=== PATIENT | female | born 1960 | race Caucasian/White ===

== ENCOUNTER 2024-09-11 11:54 | Inpatient (IN) | payer BC, SELFPAY ==
[2024-09-11] VITALS (7 sets, daily range): BP systolic 131–160; BP diastolic 72–97; PULSE 90–127; RESP 16–20; TEMP 36.8–37; O2SAT 98–100
--- NOTE | ~2024-09-11 | CT_ITS ---
CT facial bones wo con Ordering provider: Janes Soto MD History: . R jaw pain after biting onto bone . Comparison: None. Technique: Thin slice axial CT of the facial bones was performed without contrast. Coronal and sagit carissa reformatted images were also obtained. . Automated exposure control and iterative reconstruction technique were employed. The dose-length product was 323.97 mGy-cm. FINDINGS: PARANASAL SINUSES: Bilateral maxillary sinus disease. Well aerated. BONES: No facial fracture including no nasal bone fracture. Multilevel degenerative cervical disc disease. ORBITS AND SUPERFICIAL SOFT TISSUES: The optic globes and orbits are normal. Tiny Hypodensities are s een in the left parotid the gland.. The superficial soft tissues are normal. VISUALIZED MASTOIDS: Well aerated. LIMITED VISUALIZED BRAIN PARENCHYMA: Normal. Possible small nodule in the right lung apical area. IMPRESSION: No facial fracture. Reviewed, dictated and finalized at location A. IMPRESSION: No facial fracture.
--- OUTSIDE RECORDS SUMMARY | 2024-09-11 13:57 | XMS_ITS | Clinical Summary ---
Author Organization [facility] Address [address] [place] [address] Care Team Providers Care Claim Taker Name Role Phone None, Provider MD Primary Care Provider Unavaila ble Allergies Active Allergy Reactions Criticality Noted Date Comments Ciprofloxacin Hives High 01/02/2014 Cefixime Hives High 07/20/2018 Tilactase Unknown Low 10/16/2011 Medications estradiol 1 mg-progesterone 20 mg-testosterone -0.25 mg/ 15 mL creamIndication s:Hormone replacement therapy Apply 0.5 mLs topically daily. Patient would prefer different combonation but I could not get it to go thru If possible fill as Estradiol .05/ Prog 50/Test 0.1 Thank you 15 mL 3 0 Active Additional Information Patient not taking.Reported on 04/25/2024 PARoxetine 20 MG tabletIndicatio ns:Anxiety Take 1 tablet (20 mg total) by mouth daily. 90 tablet 1 1 Active Additional Information Patient not taking.Reported on 04/25/2024 GENERIC COMPOUNDED CREAMIndication s:Hormone replacement therapy Compound cream containing:Estr adiol .05 mg/Progesterone 50 mg/Testosterone 0.1 mg Administration instructions:Ap ply 0.5ml topically daily Dispense 15ml 1 Container 3 1 Active Additional Information Patient not taking.Reported on 04/25/2024 Active Problems Problem Noted Date Diagnosed Date Sinusitis, acute 12/10/2017 Allergic rhinitis 03/23/2017 Hormone replacement therapy 10/04/2015 Overview (07/20/2018): Impression - 23Mar2017 Trev Bautista: # 15 EstradlL/Prog/test ).5/50/.01; apply 2 clicks to forearm & rub in daily Hot flashes 08/23/2013 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 Anxiety 12/20/2012 Vitamin D deficiency 09/24/2012 Anemia, B12 deficiency 09/23/2012 Fatigue 09/22/2012 Irritable bowel syndrome 10/16/2011 Resolved Problems Problem Noted Date Diagnosed Date Resolved Date Wears glasses 03/23/2017 11/11/2019 Encounter for preventive health examination 10/16/2011 11/11/2019 Immunizations Immunization Administration Dates Next Due Td (Tenivac) preservative free 07/08/2007,1995 Tdap (Generic) 08/05/2013 Social History Tobacco Use Types Packs/Day Years Used Date Smoking Tobacco: Never Smokeless Tobacco: Never Tobacco Cessation:Counseling Given: No Alcohol Use Standard Drinks/Week Comments Yes 0 (1 standard drink = 0.6 oz pur e alcohol) PHQ-2 Answer Date Recorded Patient Health Questionnaire-2 Score 0 04/25/2024 Comments No Sex and Gender Information Value Date Recorded Sex Assigned at Female 04/18/2024 10:08 AM PASTRY COOK Legal Sex Female 6:49 PM CDT Gender Identity Not on file Sexual Orientation Not on file Last Filed Vital Signs Vital Sign Reading Time Taken Comments Blood Pressure 160/86 04/25/2024 2:13 PM PASTRY COOK notated a little anxious Pulse 82 04/25/2024 2:13 PM PASTRY COOK Temperature 36.2 C (97.1 F) 04/25/2024 1:27 PM PASTRY COOK Respiratory Rate 18 05/22/2020 2:20 PM CDT Oxygen Saturation 98% 05/22/2020 2:2 0 PM CDT Inhaled Oxygen Concentration - - Weight 52.8 kg (116 lb 6.4 oz) 04/25/2024 1:27 PM PASTRY COOK Height 154.9 cm (5' 1) 04/25/2024 1:27 PM PASTRY COOK pt states Body Mass Index 21.99 04/25/2024 1:27 PM PASTRY COOK Plan of Treatment Health Maintenance Due Date Last Done Comments Colorectal Cancer Screening Colonoscopy (10 Years) 1961 Annual Physical 01/30/1964 Hepatitis C 1979 Pneumococcal Vaccine: 50+ Years (1 of 1 - PCV) 2011 Zoster Vaccines (1 of 2) 2011 Mammogram Screening 04/02/2019 04/02/2017 Cervical Cancer Screening Pap Smear (Age 30 to 64) Every 3 Years 03/12/2021 03/12/2018 Cervical Cancer Screening Pap with HPV Testing (Age 30 to 64) Every 5 Years 03/12/2023 03/12/2018 Cervical Cancer Screening with HPV 03/12/2023 COVID-19 Vaccine ( season) 2023 05/01/2021, 10/10/2020, 09/20/2020 DTaP, Tdap and Td Vaccines (3 - Td or Tdap) 02/15/2034 02/16/2024, 08/05/2013, 07/08/2007, Additional history exists RSV Immunization or 60+ Years (1 - 1-dose 75+ series) 01/30/2036 PHQ-2 (Physician [place]) Completed 04/25/2024 Meningococcal B Vaccine Aged Out No l onger eligible based on patient's age to complete this topic Meningococcal Vaccine Aged Out No alisson jhon eligible based on patient's age to complete this topic RSV Immunizations Under 20 Months Aged Out No longer eligible based on patient's age to complete this topic Procedures Procedure Name Priority Date/Time Associated Diagnosis Comments OUTSIDE CYTOPATH CERV/VAG INTERPRET (PAP) 03/12/2018 OUTSIDE CYTOPATH CERV/VAG INTERPRET (PAP) (SCAN ORDER) 03/12/2018 MG SCREENING W HAJA MARC DIGI Routine 04/02/2017 4:05 PM PASTRY COOK from Last 3 Months or Most Recently Relevant to Health Maintenance Results * OUTSIDE CYTOPATH VAG/CERV PAP WITH HPV (03/12/2018) 03/12/2018 Narrative 03/12/2018 Ordered by an unspecified provider. us Documents Scanned SCANNING Final Result * OUTSIDE CYTOPATH CERV/VAG INTERPRET (PAP) (03/12/2018) 03/12/2018 Narrative 03/12/2018 Ordered by an unspecified provider. us Documents Scanned SCANNING Final Result * MG SCREENING W HAJA MARC DIGI (04/02/2017 4:05 PM PASTRY COOK) Anatomical Region Laterality Modality Breast Bilateral Mammography 04/02/2017 4:05 PM PASTRY COOK 04/02/2017 4:05 PM PASTRY COOK Narrative 04/02/2017 4:11 PM PASTRY COOK EUGENIA BANDA ADMIT/SERVICE DATE: 04/02/17 ACCT: [id number] DISCHARGE DATE: : 1960 SEX: F ORD SITE: [facility] PT TYPE: REG CLI ORDERING MD: TREV BAUTISTA MD STUDY DATE REPORT # ORDER # EXT ORDER ID 04/02/17 [id number] PROC CODE: DSMTWB PROCEDURE DESCRIPTION: MG SCREEN DIG SHAKIRA W HAJA BI EXAMINATION: MG SCREEN DIG SHAKIRA W HAJA BI WITH TOMOSYNTHESIS AND COMPUTER-AIDED DETECTION (CAD) DATE: 04/02/2017 11:27 AM COMPARISON STUDIES: 09/20/2015, 09/21/2015. CLINICAL HISTORY: OTHER - ANNUAL . SCREENING, NO COMPLAINTS. HISTORY OF COSMETIC BREAST SURGERY 20 YEARS AGO. FAMILY HISTORY OF BREAST CA:: AUNT AND GRANDMOTHER. FINDINGS: BILATERAL CC, MLO, 2-D AND 3-D ACQUISITIONS. SCATTERED RESIDUAL FIBROGLANDULAR PARENCHYMA SIMILAR IN APPEARANCE AND DISTRIBUTION TO THE PREVIOUS EXAMS. NO EVIDENCE OF DOMINANT MASS, ARCHITECTURAL DISTORTION, SKIN THICKENING, NIPPLE RETRACTION OR SUSPICIOUS CLUSTERS OF MICROCALCIFICATIONS. BENIGN CALCIFICATIONS REDEMONSTRATED. RETROAREOLAR ASYMMETRY OF THE SOFT TISSUES EVALUATED ON AUGUST 2015 AND DEEMED BENIGN. IMPRESSION: 1. BI-RADS CATEGORY 2 - BENIGN FINDINGS. ANNUAL SCREENING MAMMOGRAPHY RECOMMENDED A) A NEGATIVE REPORT SHOULD NOT DELAY A BIOPSY IF A DOMINANT OR CLINICALLY SUSPICIOUS MASS IS PRESENT. B) ADENOSIS AND DENSE BREASTS MAY OBSCURE AN UNDERLYING NEOPLASM. C) STUDY INTERPRETED WITH COMPUTER AIDED DETECTION. MQSA BI-RADS CATEGORIES: CATEGORY 0 - NEEDS ADDITIONAL IMAGING EVALUATION. CATEGORY 1 - NEGATIVE. CATEGORY 2 - BENIGN FINDINGS. CATEGORY 3 - PROBABLY BENIGN FINDINGS, BUT SHORT INTERVAL FOLLOW-UP IS RECOMMENDED. CATEGORY 4 - SUSPICIOUS ABNORMALITY AND BIOPSY SHOULD BE CONSIDERED THOUGH THE LESION MAY WELL BE BENIGN. CATEGORY 5 - HIGHLY SUGGESTIVE OF MALIGNANCY AND APPROPRIATE ACTION SHOULD BE TAKEN. THE MEAL ATTENDANT OF THIS REPORT IN ITS ENTIRETY IS A PRODUCT OF VOICE RECOGNITION SOFTWARE. ELECTRONICALLY SIGNED BY FABY KYLE MD ON 04/02/2017 4:07 PM Procedure Note Natanael Arellano MD - 12/23/2017 EUGENIA BANDA ADMIT/SERVICE DATE:04/02/17 ACCT: [id number] DISCHARGE DATE: : 1960 SEX: F [facility] S[facility]: [facility] PT TYPE: REG CLI ORDERING MD:TREV BAUTISTA MD STUDY DATE REPORT # ORDER # EXT ORDER ID 04/02/17 [id number] PROC CODE: DSMTWB PROCEDURE DESCRIPTION: MG SCREEN DIG SHAKIRA W HAJA BI EXAMINATION: MG SCREEN DIG SHAKIRA W HAJA BI WITH TOMOSYNTHESIS ANDCOMPUTER-AIDED DETECTION (CAD) DATE: 04/02/2017 11:27 AM COMPARISON STUDIES: 09/20/2015, 09/21/2015. CLINICAL HISTORY: OTHER - ANNUAL . SCREENING, NO COMPLAINTS. HISTORY OFCOSMETIC BREAST SURGERY 20 YEARS AGO. FAMILY HISTORY OF BREAST CA:: AUNT AND GRANDMOTHER. FINDINGS: BILATERAL CC, MLO, 2-D AND 3-D ACQUISITIONS. SCATTERED RESIDUALFIBROGLANDULAR PARENCHYMA SIMILAR IN APPEARANCE AND DISTRIBUTION TO THE PREVIOUS EXAMS. NO EVIDENCE OFDOMINANT MASS, ARCHITECTURAL DISTORTION, SKIN THICKENING, NIPPLE RETRACTION OR SUSPICIOUS CLUSTERS OFMICROCALCIFICATIONS. BENIGN CALCIFICATIONS REDEMONSTRATED. RETROAREOLAR ASYMMETRY OF THE SOFTTISSUES EVALUATED ON AUGUST 2015 AND DEEMED BENIGN. IMPRESSION: 1. BI-RADS CATEGORY 2 - BENIGN FINDINGS. ANNUAL SCREENING MAMMOGRAPHY RECOMMENDED A) A NEGATIVE REPORT SHOULD NOT DELAY A BIOPSY IF A DOMINANT OR CLINICALLY SUSPICIOUS MASS IS PRESENT. B) ADENOSIS AND DENSE BREASTS MAY OBSCURE AN UNDERLYING NEOPLASM. C) STUDY INTERPRETED WITH COMPUTER AIDED DETECTION. MQSA BI-RADS CATEGORIES: CATEGORY 0 - NEEDS ADDITIONAL IMAGING EVALUATION. CATEGORY 1 - NEGATIVE. CATEGORY 2 - BENIGN FINDINGS. CATEGORY 3 - PROBABLY BENIGN FINDINGS, BUT SHORT INTERVAL FOLLOW-UP IS RECOMMENDED. CATEGORY 4 - SUSPICIOUS ABNORMALITY AND BIOPSY SHOULD BE CONSIDERED THOUGH THE LESION MAY WELL BE BENIGN. CATEGORY 5 - HIGHLY SUGGESTIVE OF MALIGNANCY AND APPROPRIATE ACTION SHOULD BE TAKEN. THE MEAL ATTENDANT OF THIS REPORT IN ITS ENTIRETY IS A PRODUCT OF VOICERECOGNITION SOFTWARE. ELECTRONICALLY SIGNED BY FABY KYLE MD ON 04/02/2017 4:07 PM Trev Bautista MD MAMMO Final Result from Last 3 Months or Most Recently Relevant to Health Maintenance Insurance [employer] Care Teams Claim Taker Relationship Specialty Start Date End Date None, Provider, PCP - General UNKNOWN PHYSICIAN SPECIALTY 04/25/24
--- OUTSIDE RECORDS SUMMARY | 2024-09-11 13:57 | XMS_ITS | Encounter Summary ---
Author Organization [facility] Address [facility] [place] [address] Care Team Providers Care Polygraph Technician Name Role Phone None, Provider MD Primary Care Provider Unavaila ble Reason for Visit * Reason Onset Date Comments Called To Cancel Office Appt. 04/28/2024 Encounter Details Date Type Department Care Team (Late st Contact Info) Description 04/28/2024 Telephone [facility] - [place] [address] [place] [address] [phone] Tomasz Cifuentes MD [address] [place], [place] [phone] Called To Cancel Office Appt. Social History Tobacco Use Types Packs/Day Years Used Date Smoking Tobacco: Never Smokeless Tobacco: Never Alcohol Use Standard Drinks/Week Comments Yes 0 (1 standard drink = 0.6 oz pur e alcohol) PHQ-2 Answer Date Recorded Patient Health Questionnaire-2 Score 0 04/25/2024 Comments No Sex and Gender Information Value Date Recorded Sex Assigned at Female 04/18/2024 10:08 AM WORKPLACE TRAINER AND ASSESSOR Legal Sex Female 6:49 PM CDT Gender Identity Not on file Sexual Orientation Not on file documented as of this encounter Progress Notes * Neris Pearce RN - 04/28/2024 1:51 PM CST Noted apt canceled. PLACE TRAINER AND ASSESSOR * Sharon Bennett - 04/28/2024 1:48 PM CST Pt. Called- Please cancel upcoming appointment. She will call back to reschedule in the future, does not wish to reschedule at this time. PLACE TRAINER AND ASSESSOR documented in this encounter Plan of Treatment Not on file documented as of this encounter Visit Diagnoses Not on filedocumented in this encounter Care Teams Polygraph Technician Relationship Specialty Start Date End Date None, Provider, PCP - General UNKNOWN PHYSICIAN SPECIALTY 04/25/24 documented as of this encounter
--- OUTSIDE RECORDS SUMMARY | 2024-09-11 13:57 | XMS_ITS | Clinical Summary ---
Author Organization [facility] Address [address] [place] [address] Care Team Providers Care Clin Asst Name Role Phone Unavailable Primary Care Provider Unavailabl e Source Comments [facility],non-owned Affiliates and Associated Physician Practices is amultiple site organization consisting of ambulatory clinics and hospital sitesin [place], [place], [place] and [place]. This disclosure is being madepursuant to the Care Everywhere program and may not contain all information available regarding this patient. Last updated 17.[facility] Allergies Active Allergy Reactions Criticality Noted Date Comments Cephalosporins Rash Medium 06/09/2021 Hives Medications * Be aware that medications may not be up to date on this document. Alwaysverify current medications with the patient. nystatin (Mycostatin) [id number] UNIT/GM powderIndicatio ns:Candidiasis of skin Apply to affected area 3 times daily 60 g 06/16/2024 Active fluconazole (Diflucan) 150 MG tabletIndicatio ns:Candidiasis of skin Take 1 (one) tablet by mouth every 72 hours as needed 3 tablet 06/16/2024 Active Encounters Date Type Department Care Team Description 06/16/2024 2:00 PM CDT Office Visit [facility] [address] [place] [phone] Candidiasis of skin (Primary Dx); Soft tissue infection 06/16/2024 Travel from Last 3 Months Social History Tobacco Use Types Packs/Day Years Used Date Smoking Tobacco: Never Smokeless Tobacco: Never Tobacco Cessation:Counseling Given: Not Answered PHQ-2 Answer Date Recorded Patient Health Questionnaire-2 Score 0 06/16/2024 Comments Unknown Sex and Gender Information Value Date Recorded Sex Assigned at Not on file Legal Sex Female 12:15 PM CDT Gender Identity Not on file Sexual Orientation Not on file Last Filed Vital Signs Vital Sign Reading Time Taken Comments Blood Pressure 140/70 06/16/2024 2:06 PM CDT Pulse 96 06/16/2024 2:06 PM CDT Temperature 36.5 C (97.7 F) 06/16/2024 2:06 PM CDT Respiratory Rate 20 06/16/2024 2:06 PM CDT Oxygen Saturation 100% 06/16/2024 2:06 PM CDT Inhaled Oxygen Concentration - - Weight 50.8 kg (112 lb) 06/16/2024 2:06 PM CDT Height - - Body Mass Index - - Plan of Treatment Health Maintenance Due Date Last Done Comments COLOGUARD (AGES 45-75) - COL ON CA SCREENING 1960 COLON MONITORING 1960 COLONOSCOPY - COLON CA SCREENING 1961 CT COLONOGRAPHY - COLON CA SCREENING 1960 Colorectal Cancer Screening 1960 FIT - COLON CA SCREENING 1961 FLEX SIG - COLON CA SCREENING 1960 LIPID TESTING 1960 HIV SCREENING 01/30/1976 HEPATITIS C SCREENING 01/25/1979 DTAP/TDAP/TD VACCINES (1 - Tdap) 01/30/1980 PAP SMEAR 1982 PNEUMOCOCCAL VACCINE 50+ (1 of 1 - PCV) 2011 ZOSTER VACCINE (1 of 2) 2011 MAMMOGRAM 04/02/2019 04/02/2017, 04/02/2017 COVID-19 VACCINE (4 - 2023-2 5 season) 2023 05/01/2021, 10/10/2020, 09/20/2020 INFLUENZA VACCINE (#1) 2024 Respiratory Syncytial Virus (RSV) Vaccine Pt: or over 60 yrs (1 - 1-dose 75+ series) 01/30/2036 DEPRESSION SCREENING Completed 05/15/2024, 09/06/2023 HEPATITIS B VACCINE Aged Out No longe r eligible based on patient's age to complete this topic HIB VACCINE Aged Out No longer eligi ble based on patient's age to complete this topic HPV VACCINE Aged Out No longer eligi ble based on patient's age to complete this topic MENINGOCOCCAL (Group B) VACCINE SHARED DECISION-MAKING Aged Out No longer eligible based on patient's age to complete this topic MENINGOCOCCAL GROUPS A/C/Y/W VACCINE Aged Out No longer eligible b ased on patient's age to complete this topic Insurance [facility]
--- OUTSIDE RECORDS SUMMARY | 2024-09-11 13:57 | XMS_ITS | Clinical Summary ---
Author Organization [place] [address] [employer] Address [address] [place] [address] Care Team Providers Care Denture Laboratory Technician Name Role Phone No, Physician Primary Care Provider [phone] Allergies Active Allergy Reactions Criticality Noted Date Comments Cephalosporins Hives,Rash High 07/20/2018 Hives Ciprofloxacin Hives Medium 10/05/2023 Only oral Ciprofloxacin Medications UNABLE TO FIND Protein powder with vitamins - Spirutein Active Active Problems Problem Noted Date Diagnosed Date Impacted cerumen of left ear 10/05/2023 Otitis externa 09/20/2023 Surgical History Surgery Date Site/Laterality Comments TONSILLECTOMY LIPOSUCTION WRIST FRACTURE SURGERY OTHER SURGICAL HISTORY Balloonsinuplasty Medical History Medical History Date Comments Allergic rhinitis Asthma Sinusitis HL (hearing loss) Tinnitus IBS (irritable bowel syndrome) Eczema Headache Family History Medical History Relation Name Comments Diabetes Maternal Grandfather Arthritis Mother Cancer Mother Cancer Mother's Sister Cancer Paternal Grandmother Relation Name Status Comments Maternal Grandfather Mother Mother's Sister Paternal Grandmother Social History Tobacco Use Types Packs/Day Years Used Date Smoking Tobacco: Former Cigarettes Smokeless Tobacco: Never Tobacco Cessation:Counseling Given: Not Answered Personal Safety Answer Date Recorded Getting School Help Needed Not on file 09/13 Comments Unknown Sex and Gender Information Value Date Recorded Sex Assigned at Not on file Legal Sex Female 1:01 PM INFORMATION WRITER Gender Identity Not on file Sexual Orientation Not on file Obstetrics History Last Filed Vital Signs Vital Sign Reading Time Taken Comments Blood Pressure - - Pulse - - Temperature - - Respiratory Rate 18 10/05/2023 1:09 PM CDT Oxygen Saturation - - Inhaled Oxygen Concentration - - Weight 51.3 kg (113 lb) 10/05/2023 1:09 PM CDT Height 152.4 cm (5') 10/05/2023 1:09 PM CDT Body Mass Index 22.07 10/05/2023 1:09 PM CDT Plan of Treatment Health Maintenance Due Date Last Done Comments Cervical Cancer Screening 1960 Colon Cancer Screening-Colonoscopy 1961 Depression Screening 1961 Hepatitis C Screening 1961 Hepatitis B Screening 1979 Regular Well Visit/Exam 18-64 1979 Zoster Vaccine (1 of 2) 2011 Breast Cancer Screening-Mammogram 04/02/2018 04/02/2017, 04/02/2017 DTaP/Tdap/Td Vaccine (2 - Td or Tdap) 08/06/2023 08/05/2013, 07/08/2007, 09/17/1995 Covid-19 Vaccine (4 - 2023-2 5 season) 2023 05/01/2021, 10/10/2020, 09/20/2020 Influenza Vaccine (Season Ended) 2024 Pneumococcal vaccine <65 Aged Out No longer eligible based on patient's age to complete this topic Insurance [employer] [place] Care Teams Denture Laboratory Technician Relationship Specialty Start Date End Date No, Physician PCP - General 09/14/23
--- OUTSIDE RECORDS SUMMARY | 2024-09-11 13:57 | XMS_ITS | Referral Summary ---
Author Organization [place] [address] [facility] Address [address] [place] [address] Care Team Providers Care Novelty Printing Machine Operator Name Role Phone No, Physician Primary Care Provider [phone] Allergies Active Allergy Reactions Criticality Noted Date Comments Cephalosporins Hives,Rash High 07/20/2018 Hives Ciprofloxacin Hives Medium 10/05/2023 Only oral Ciprofloxacin Medications UNABLE TO FIND Protein powder with vitamins - Spirutein Active Active Problems Problem Noted Date Diagnosed Date Impacted cerumen of left ear 10/05/2023 Otitis externa 09/20/2023 Social History Tobacco Use Types Packs/Day Years Used Date Smoking Tobacco: Former Cigarettes Smokeless Tobacco: Never Tobacco Cessation:Counseling Given: Not Answered Personal Safety Answer Date Recorded Getting School Help Needed Not on file 09/13 Comments Unknown Sex and Gender Information Value Date Recorded Sex Assigned at Not on file Legal Sex Female 1:01 PM ANIMAL KEEPER Gender Identity Not on file Sexual Orientation [...] 10/05/2023 1:09 PM CDT Plan of Treatment Not on file Insurance [employer] [place] Care Teams Novelty Printing Machine Operator Relationship Specialty Start Date End Date No, Physician PCP - General 09/14/23
--- NOTE | 2024-09-11 14:15 | ECG_ITS ---
Test Date: 2024-09-11 16:53:51 Measurements Intervals Walker Rate: 100 P: 89 AK: 119 QRS: 67 QRSD: 86 T: 48 QT: 347 QTc: 448 Interpretive Statements SINUS TACHYCARDIA WITH SHORT AK INTERVAL POSSIBLE LEFT ATRIAL ENLARGEMENT [-0.1mV P-WAVE IN V1/V2] ABNORMAL RHYTHM ECG No previous ECG available for comparison Electronically Signed On 09-12-2024 15:51:34 CDT by Niranjan Eid M.D.
[2024-09-11 14:39] LABS: Hematocrit 46.6 % (37.0-47.0); Hemoglobin 15.6 g/dL (12.0-15.0); Immature Granulocyte Percent A 0.3 % (0-0.5); Lymphocytes Absolute Auto 0.92 K/mm3 (0.9-3.2); Mean Corpuscular HGB Conc 33.5 g/dl (32-36); Mean Corpuscular Hemoglobin 32.1 pg (26-34); Mean Corpuscular Volume 95.9 fl (80-100); Nucleated Red Blood Cells Absolute Auto 0.000 K/mm3 (0.0-0.012); Nucleated Red Blood Cells Perc 0.0 % (0.0-0.2); Platelet Count Result 177 k/mm3 (150-375); Red Blood Count 4.86 M/mm3 (4.2-5.4); White Blood Count 7.5 K/mm3 (4.5-10.0)
[2024-09-11 14:56] LABS: Acetaminophen < 10 ug/mL (10-30)
[2024-09-11 15:07] LABS: Alanine Aminotransferase 67 U/L (6-35); Albumin Level 4.6 g/dL (3.5-5.1); Alkaline Phosphatase 129 U/L (38-126); Anion Gap 21 mmol/L (4-12); Aspartate Amino Transferase 116 U/L (14-36); Bilirubin,Total 0.7 mg/dL (0.2-1.3); Blood Urea Nitrogen 11 mg/dL (7-17); Calcium 9.3 mg/dL (8.4-10.2); Carbon Dioxide 18 mmol/L (22-30); Chloride 98 mmol/L (98-107); Estimated CRCL calculation 49 ml/min; Estimated Glomerular Filt Rate > 60; Glucose 85 mg/dL (65-110); Potassium 4.3 mmol/L (3.4-5.0); Sodium 137 mmol/L (137-145); Total Protein 7.9 g/dL (6.3-8.2)
[2024-09-11 15:09] LABS: Add Urine Microscopic? YES; Appearance Urine Clear (Clear); Glucose Urine UA Negative (Negative); Leukocyte Esterase Ur Trace LEU/UL (Negative); Nitrate Urine Negative (Negative); Specific Grav Ur 1.023 (1.001-1.035)
[2024-09-11 15:22] LABS: Cannabinoid Screen Urine Negative (Negative)
[2024-09-11 15:37] LABS: Thyroid Stimulating Hormone 0.533 uIU/mL (0.465-4.680)
[2024-09-11] MEDS: IBUPROFEN 400 MG TABLET 800 MG PO (16:17)
[2024-09-11] MEDS: ACETAMINOPHEN 500 MG TABLET 1000 MG PO (16:18)
--- NOTE | 2024-09-11 17:48 | ED.GENADULT ---
HPI - General Adult General Chief complaint: Psychiatric Symptoms <Janes Soto MD - Last Filed: 09/11/24 17:56> Stated complaint: R jaw pain <Janes Soto MD - Last Filed: 09/11/24 17:56> Time Seen by Provider: 09/11/24 13:33 <Janes Soto MD - Last Filed: 09/11/24 17:56> History of Present Illness HPI narrative: This is a 64-year-old female presenting ED initially for jaw pain. Patient says that she bit into a hamburger with a bone in it over a week ago is been having significant jaw pain since then. Instead of taking pain medication she says she has been drinking large amounts of Arjun's vodka. Patient saw a dentist who did a x-ray of her jaw not find any acute findings. Despite this the pain is continued the patient has continued to drink heavily. She has made several comments that she wants to because the pain is so bad. She she says that she can not take this anymore. She denies having a plan. She denies wanting to harm anyone else. She has never been admitted to hospital for psychiatric illness or been in ICU for suicide attempts. <Janes Soto MD - Last Filed: 09/11/24 17:56> Related Data Allergies/adverse reactions: Allergies Allergy/AdvReac Type Severity Reaction Status Date / Time Cephalosporins Allergy Hives Verified 09/11/24 13:28 <Janes Soto MD - Last Filed: 09/11/24 17:56> [facility] Social History Social History: Social History Substance use type: does not use <Janes Soto MD - Last Filed: 09/11/24 17:56> Exam Narrative: APPEARANCE: No apparent distress. Head: Exam of the jaw revealed no obvious deformities. No crepitus or laxity of the jaw. No dental trauma. No dental abscess. EYES: EOMI, NOSE: Atraumatic NECK: Trachea midline RESPIRATORY: No increased rate of breathing clear to auscultation CARDIOVASCULAR: RRR, no peripheral edema ABDOMINAL: Non-distended MUSCULOSKELETAl: No obvious deformities NEURO: Alert. Moving 4/4 extremities SKIN:: Warm, dry. Normal color PSYCHIATRIC: Normal affect <Janes Soto MD - Last Filed: 09/11/24 17:56> Course Vital Signs Vital signs: Vital Signs Temperature 98.6 F 09/11/24 11:56 Pulse Rate 127 H 09/11/24 11:56 Respiratory Rate 16 09/11/24 11:56 Blood Pressure 147/96 H 09/11/24 11:56 Pulse Oximetry 99 09/11/24 11:56 Oxygen Delivery Room Air 09/11/24 11:56 Temperature 98.3 F 09/11/24 23:19 Pulse Rate 88 09/12/24 00:15 Respiratory Rate 15 09/12/24 00:15 Blood Pressure 145/95 H 09/12/24 00:00 Pulse Oximetry 99 09/12/24 00:15 Oxygen Delivery Room Air 09/11/24 13:25 <Janes Soto MD - Last Filed: 09/11/24 17:56> Vital Signs Temperature 98.6 F 09/11/24 11:56 Pulse Rate 127 H 09/11/24 11:56 Respiratory Rate 16 09/11/24 11:56 Blood Pressure 147/96 H 09/11/24 11:56 Pulse Oximetry 99 09/11/24 11:56 Oxygen Delivery Room Air 09/11/24 11:56 Temperature 98.3 F 09/11/24 23:19 Pulse Rate 88 09/12/24 00:15 Respiratory Rate 15 09/12/24 00:15 Blood Pressure 145/95 H 09/12/24 00:00 Pulse Oximetry 99 09/12/24 00:15 Oxygen Delivery Room Air 09/11/24 13:25 <Leticia Beckham MD - Last Filed: 09/12/24 00:35> Medical Decision Making MDM Narrative Medical decision making narrative: -Course: 64-year-old female presenting with jaw pain. For jaw exam is unremarkable and CT of jaw did not reveal any acute injury. A dental block was performed with minimal relief. Patient's true issue today appears to be her alcoholism and suicidality. Alcohol levels elevated at 220 and will be repeated at 8:30 p.m. to see if she is sober. Patient will need re-evaluation when sober to see if she is still suicidal but she is medically clear for psych eval. <Janes Soto MD - Last Filed: 09/11/24 17:56> -Course: 64-year-old female presenting with jaw pain. For jaw exam is unremarkable and CT of jaw did not reveal any acute injury. A dental block was performed with minimal relief. Patient's true issue today appears to be her alcoholism and suicidality. Alcohol levels elevated at 220 and will be repeated at 8:30 p.m. to see if she is sober. Patient will need re-evaluation when sober to see if she is still suicidal but she is medically clear for psych eval. Patient was signed out to me pending clinical sobriety. Repeat ethanol liver noted to be 87. At this time, a crisis behavior health team was contacted and patient is pending psychiatric evaluation. Patient was evaluated by a crisis team and they did recommend voluntary inpatient admission, however, patient does have a chronic alcohol history and does drink daily, is concerned that she is going to be going into withdrawal. Patient's last drink was 11:00 a.m. this morning, approximately 12 hours ago. At this time, patient was informed that she will need to be admitted medically for alcohol withdrawal prior to psychiatric admission. She was administered 2 mg of IV Ativan. Case was discussed with the on-call hospitalist Dr. Santos at 0020 any accepted admission. Case was also discussed with the on-call regulatory affairs associate patient will need an ICU bed given her one-to-one sitter status, however, Dr. Carter at 0028 informed me that the patient could be admitted to IMU status but will be placed in an ICU bed for her one-to-one sitter. <Leticia Beckham MD - Last Filed: 09/12/24 00:35> Vital Signs Vital Signs: Vital Signs Temperature 98.6 F 09/11/24 11:56 Pulse Rate 127 H 09/11/24 11:56 Respiratory Rate 16 09/11/24 11:56 Blood Pressure 147/96 H 09/11/24 11:56 Pulse Oximetry 99 09/11/24 11:56 Oxygen Delivery Room Air 09/11/24 11:56 Temperature 98.3 F 09/11/24 23:19 Pulse Rate 88 09/12/24 00:15 Respiratory Rate 15 09/12/24 00:15 Blood Pressure 145/95 H 09/12/24 00:00 Pulse Oximetry 99 09/12/24 00:15 Oxygen Delivery Room Air 09/11/24 13:25 <Janes Soto MD - Last Filed: 09/11/24 17:56> Vital Signs Temperature 98.6 F 09/11/24 11:56 Pulse Rate 127 H 09/11/24 11:56 Respiratory Rate 16 09/11/24 11:56 Blood Pressure 147/96 H 09/11/24 11:56 Pulse Oximetry 99 09/11/24 11:56 Oxygen Delivery Room Air 09/11/24 11:56 Temperature 98.3 F 09/11/24 23:19 Pulse Rate 88 09/12/24 00:15 Respiratory Rate 15 09/12/24 00:15 Blood Pressure 145/95 H 09/12/24 00:00 Pulse Oximetry 99 09/12/24 00:15 Oxygen Delivery Room Air 09/11/24 13:25 <Leticia Beckham MD - Last Filed: 09/12/24 00:35> Lab Data Result diagrams: 09/11/24 14:32 09/11/24 14:32 <Janes Soto MD - Last Filed: 09/11/24 17:56> Labs: Lab Results 09/11/24 09/11/24 09/11/24 Range/Units 14:32 14:57 20:34 WBC 7.5 (4.5-10.0) K/mm3 RBC 4.86 (4.2-5.4) M/mm3 Hgb 15.6 H (12.0-15.0) g/dL Hct 46.6 (37.0-47.0) % MCV 95.9 (80-100) fl MCH 32.1 (26-34) pg MCHC 33.5 (32-36) g/dl RDW 12.9 (11.5-14.5) % Plt Count 177 (150-375) k/mm3 MPV 9.0 (7.4-10.4) fl Immature Gran % (Auto) 0.3 (0-0.5) % Neut % (Auto) 81.5 H (45.5-73.1) % Lymph % (Auto) 12.3 L (18.3-44.2) % Barbour % (Auto) 5.6 (2.6-8.5) % Eos % (Auto) 0.0 (0-4.4) % Baso % (Auto) 0.3 (0.2-1.2) % Lymph # (Auto) 0.92 (0.9-3.2) K/mm3 Barbour # (Auto) 0.4 (0.1-0.6) K/mm3 Eos # (Auto) 0.0 (0-0.3) K/mm3 Baso # (Auto) 0.0 (0.0-0.1) K/mm3 Abs Immat Gran (auto) 0.02 (0.00-0.031) K/mm3 Absolute Neuts (auto) 6.1 (1.3-6.7) K/mm3 Absolute Nucleated RBC 0.000 (0.0-0.012) K/mm3 Nucleated RBC % 0.0 (0.0-0.2) % Sodium 137 (137-145) mmol/L Potassium 4.3 (3.4-5.0) mmol/L Chloride 98 (98-107) mmol/L Carbon Dioxide 18 L (22-30) mmol/L Anion Gap 21 H (4-12) mmol/L BUN 11 (7-17) mg/dL Creatinine 0.73 (0.7-1.0) mg/dL Estim Creat Clear Calc 49 ml/min Estimated GFR > 60 (59 - ) Glucose 85 (65-110) mg/dL Calcium 9.3 (8.4-10.2) mg/dL Total Bilirubin 0.7 (0.2-1.3) mg/dL AST 116 H (14-36) U/L ALT 67 H (6-35) U/L Alkaline Phosphatase 129 H (38-126) U/L Total Protein 7.9 (6.3-8.2) g/dL Albumin 4.6 (3.5-5.1) g/dL TSH 0.533 (0.465-4.680) uIU/mL Urine Color Yellow (Yellow) Urine Appearance Clear (Clear) Urine pH 5.0 (5.0-9.0) Ur Specific Stuart 1.023 (1.001-1.035) Urine Protein 2+ H (Negative) mg/dL Urine Glucose (UA) Negative (Negative) mg/dL Urine Ketones 3+ H (Negative) mg/dL Ur Blood (Man) 1+ H (Negative) Urine Nitrate Negative (Negative) Urine Bilirubin Negative (Negative) Urine Urobilinogen 1.0 (<2.0) mg/dL Leukocyte Esterase Rfl Trace H (Negative) LINDA/UL Urine RBC 0-2 (0-2) /hpf Urine WBC 0-5 (0-3) /hpf Ur Squamous Epith Cells None seen (Few) /hpf Urine Bacteria None seen /hpf Urine Casts 3-5 Salicylates < 1.0 L (2-20) mg/dL Urine Opiates Screen Negative (Negative) Urine Methadone Screen Negative (Negative) Acetaminophen < 10 L (10-30) ug/mL Ur Barbiturates Screen Negative (Negative) Ur Phencyclidine Scrn Negative (Negative) Ur Amphetamine Screen Negative (Negative) U Benzodiazepines Scrn Negative (Negative) Urine Cocaine Screen Negative (Negative) U Cannabinoids Screen Negative (Negative) Ethyl Alcohol 224 87 (<10) mg/dL <Janes Soto MD - Last Filed: 09/11/24 17:56> Lab Results 09/11/24 09/11/24 09/11/24 Range/Units 14:32 14:57 20:34 WBC 7.5 (4.5-10.0) K/mm3 RBC 4.86 (4.2-5.4) M/mm3 Hgb 15.6 H (12.0-15.0) g/dL Hct 46.6 (37.0-47.0) % MCV 95.9 (80-100) fl MCH 32.1 (26-34) pg MCHC 33.5 (32-36) g/dl RDW 12.9 (11.5-14.5) % Plt Count 177 (150-375) k/mm3 MPV 9.0 (7.4-10.4) fl Immature Gran % (Auto) 0.3 (0-0.5) % Neut % (Auto) 81.5 H (45.5-73.1) % Lymph % (Auto) 12.3 L (18.3-44.2) % Barbour % (Auto) 5.6 (2.6-8.5) % Eos % (Auto) 0.0 (0-4.4) % Baso % (Auto) 0.3 (0.2-1.2) % Lymph # (Auto) 0.92 (0.9-3.2) K/mm3 Barbour # (Auto) 0.4 (0.1-0.6) K/mm3 Eos # (Auto) 0.0 (0-0.3) K/mm3 Baso # (Auto) 0.0 (0.0-0.1) K/mm3 Abs Immat Gran (auto) 0.02 (0.00-0.031) K/mm3 Absolute Neuts (auto) 6.1 (1.3-6.7) K/mm3 Absolute Nucleated RBC 0.000 (0.0-0.012) K/mm3 Nucleated RBC % 0.0 (0.0-0.2) % Sodium 137 (137-145) mmol/L Potassium 4.3 (3.4-5.0) mmol/L Chloride 98 (98-107) mmol/L Carbon Dioxide 18 L (22-30) mmol/L Anion Gap 21 H (4-12) mmol/L BUN 11 (7-17) mg/dL Creatinine 0.73 (0.7-1.0) mg/dL Estim Creat Clear Calc 49 ml/min Estimated GFR > 60 (59 - ) Glucose 85 (65-110) mg/dL Calcium 9.3 (8.4-10.2) mg/dL Total Bilirubin 0.7 (0.2-1.3) mg/dL AST 116 H (14-36) U/L ALT 67 H (6-35) U/L Alkaline Phosphatase 129 H (38-126) U/L Total Protein 7.9 (6.3-8.2) g/dL Albumin 4.6 (3.5-5.1) g/dL TSH 0.533 (0.465-4.680) uIU/mL Urine Color Yellow (Yellow) Urine Appearance Clear (Clear) Urine pH 5.0 (5.0-9.0) Ur Specific Stuart 1.023 (1.001-1.035) Urine Protein 2+ H (Negative) mg/dL Urine Glucose (UA) Negative (Negative) mg/dL Urine Ketones 3+ H (Negative) mg/dL Ur Blood (Man) 1+ H (Negative) Urine Nitrate Negative (Negative) Urine Bilirubin Negative (Negative) Urine Urobilinogen 1.0 (<2.0) mg/dL Leukocyte Esterase Rfl Trace H (Negative) LINDA/UL Urine RBC 0-2 (0-2) /hpf Urine WBC 0-5 (0-3) /hpf Ur Squamous Epith Cells None seen (Few) /hpf Urine Bacteria None seen /hpf Urine Casts 3-5 Salicylates < 1.0 L (2-20) mg/dL Urine Opiates Screen Negative (Negative) Urine Methadone Screen Negative (Negative) Acetaminophen < 10 L (10-30) ug/mL Ur Barbiturates Screen Negative (Negative) Ur Phencyclidine Scrn Negative (Negative) Ur Amphetamine Screen Negative (Negative) U Benzodiazepines Scrn Negative (Negative) Urine Cocaine Screen Negative (Negative) U Cannabinoids Screen Negative (Negative) Ethyl Alcohol 224 87 (<10) mg/dL <Leticia Beckham MD - Last Filed: 09/12/24 00:35> Discharge Plan Discharge Clinical Impression: Jaw pain, ETOHism, Alcohol withdrawal <Janes Soto MD - Last Filed: 09/11/24 17:56> Patient Disposition: Still a Patient <Janes Soto MD - Last Filed: 09/11/24 17:56> Condition: Stable <Janes Soto MD - Last Filed: 09/11/24 17:56> Instructions: Antibiotic Form <Janes Soto MD - Last Filed: 09/11/24 17:56> Patient Language: Sami <Janes Soto MD - Last Filed: 09/11/24 17:56> Follow-up/Referrals: PHYSICIAN,MOTORCYCLE ASSEMBLER [Primary Care Provider] - <Janes Soto MD - Last Filed: 09/11/24 17:56>
[2024-09-11 19:59] LABS: Salicylate < 1.0 mg/dL (2-20)
--- NOTE | 2024-09-11 23:15 | PC.NURSE ---
Report to Erma CALVO
--- NOTE | 2024-09-11 23:23 | PC.NURSE ---
Report received from UMESH Miguel. Assumed care of patient at this time.
--- NOTE | 2024-09-11 23:56 | PC.NURSE ---
Patient moved from room 15 to room 14 for monitoring and s/s of alcohol withdraw. Patients sitter remains at bedside.
[2024-09-12] VITALS (32 sets, daily range): BP systolic 130–152; BP diastolic 60–95; PULSE 85–103; RESP 12–18; TEMP 36.4–36.6; O2SAT 94–99; BMI 20.9; BMI 21.4
[2024-09-12] MEDS: LORazepam INJ (*CRX) 2 MG/ML VIAL IV PUSH (00:38)
--- NOTE | 2024-09-12 01:03 | PC.NURSE ---
0028 Zenia with [facility] calls to get update on patient and request covid swab and results to be faxed to [phone]. 0053 Zenia with [facility] calls to give update that the patient has been accepted pending negative covid results. She states patient is accepted to . She states she will call back with room and phone number for report when results of covid test result. ERP and otorhinolaryngologist notified.
[2024-09-12 01:33] LABS: Influenza A QL RT-PCR Negative (Negative); Influenza B QL RT-PCR Negative (Negative); RSV RNA, RT-PCR Negative (Negative); SARS-CoV-2 RNA PCR Negative (Negative)
--- NOTE | 2024-09-12 01:58 | P.HP_ITS ---
H&P: HPI History of Present Illness Date/Time: 09/12/24 01:58 Chief Complaint: Jaw pain Narrative: This is a 64-year-old female with a history of alcohol use disorder presents to [facility] ER on 09/11/2024 with the complaint of jaw pain. Her whom she lives with is present and helps with history. The patient reports on September 01 she bit into a hamburger that had a bone it she has had significant jaw pain since. She saw a dentist and the dentist said it is likely just a spasm and they did not find anything. The patient has been drinking about 4-5 shots of ijeoma's vodka for many decades. She has been drinking more since this perceived pain. She reports it as spasming/pain. She says after she sneezed her head was jerking. Of note, the patient has circumferential speech, he stares off into space. The reports this is a bit unusual for her and maybe it is from the pain medications. She has not had any psychiatric history but believe she has anxiety as does many people in her family and that is the reason she drinks alcohol. She says she cannot take the pain anymore and wants to because the pain is so bad. The denies any history suicidal ideation in the past. In the ER a jaw goes am was unremarkable as well as CT of the face. No acute injury. A dental block was performed and the patient reports there was some relief. Alcohol level on admission 220. Last drink was at 11:00 a.m. on 09/11/2024. She was noted to have a CIWA scale 15 and given Ativan. Crisis team visited the patient in the ER and recommended she be medically cleared for another psych eval. A 1 on 1 sitter was placed. Review of Systems Review of Systems: All systems reviewed & are unremarkable except as noted in HPI and below (Subjective) [facility] Social History Social History Substance use type: does not use Meds Home Medications and Allergies Allergies Allergy/AdvReac Type Severity Reaction Status Date / Time Cephalosporins Allergy Hives Verified 09/11/24 13:28 Vital Signs Vital Signs - 24 hr 09/11/24 11:56 09/11/24 13:23 09/11/24 13:25 Temperature 98.6 F Pulse Rate 127 H 109 H Respiratory Rate 16 20 20 Blood Pressure 147/96 H 131/75 Pulse Oximetry 99 99 100 Oxygen Delivery Room Air Room Air 09/11/24 23:19 09/11/24 23:53 09/11/24 23:54 Temperature 98.3 F Pulse Rate 95 90 95 Respiratory Rate 18 16 16 Blood Pressure 160/97 H 159/72 H Pulse Oximetry 98 98 99 Oxygen Delivery 09/11/24 23:55 09/12/24 00:00 09/12/24 00:01 Temperature Pulse Rate 90 90 88 Respiratory Rate 18 16 Blood Pressure 145/95 H Pulse Oximetry 99 98 Oxygen Delivery 09/12/24 00:15 Temperature Pulse Rate 88 Respiratory Rate 15 Blood Pressure Pulse Oximetry 99 Oxygen Delivery Exam Const: General: comfortable and no acute distress Other: A&O x3, circumferential speech, often staring into space HENMT: Mouth: Yes moist mucous membranes Other: No lesions. Jaw is mobile, no clicking. No spasming upon face tapping. No lymphadenopathy Eyes: Pupils: Equal, round and reactive pupils present Neck: Neck: supple Resp: Effort & Inspection: normal respiratory effort Auscultation: clear to auscultation bilaterally Cardio: Rate: regular rate Rhythm: regular rhythm GI: Inspection: non-distended GI Palp: Yes Soft to palpation Neuro: Motor exam (neuro): 5/5 motor strength present throughout Extrem: General: no edema H&P: Results Labs Labs: Short CBC 09/11/24 Range/Units 14:32 WBC 7.5 (4.5-10.0) K/mm3 Hgb 15.6 H (12.0-15.0) g/dL Hct 46.6 (37.0-47.0) % Plt Count 177 (150-375) k/mm3 BMP 09/11/24 14:32 Sodium 137 Potassium 4.3 Chloride 98 Carbon Dioxide 18 L BUN 11 Creatinine 0.73 Glucose 85 Calcium 9.3 Liver Function 09/11/24 Range/Units 14:32 Total Bilirubin 0.7 (0.2-1.3) mg/dL AST 116 H (14-36) U/L ALT 67 H (6-35) U/L Alkaline Phosphatase 129 H (38-126) U/L Albumin 4.6 (3.5-5.1) g/dL Urine 09/11/24 Range/Units 14:57 Urine Color Yellow (Yellow) Urine Appearance Clear (Clear) Urine pH 5.0 (5.0-9.0) Ur Specific Mchenry 1.023 (1.001-1.035) Urine Protein 2+ H (Negative) mg/dL Urine Glucose (UA) Negative (Negative) mg/dL Assessment and Plan Assessment and plan (1) ETOHism: Code(s): F10.20 - Alcohol dependence, uncomplicated Status: Acute (2) Alcohol withdrawal: Code(s): F10.939 - Alcohol use, unspecified with withdrawal, unspecified Status: Acute (3) Jaw pain: Code(s): R68.84 - Jaw pain Status: Acute Plan This is a 64-year-old female with a history of alcohol use disorder presents to [facility] ER on 09/11/2024 with the complaint of jaw pain. Her whom she lives with is present and helps with history. The patient reports on September 01 she bit into a hamburger that had a bone it she has had significant jaw pain since. She saw a dentist and the dentist said it is likely just a spasm and they did not find anything. The patient has been drinking about 4-5 shots of ijeoma's vodka for many decades. She has been drinking more since this perceived pain. She reports it as spasming/pain. She says after she sneezed her head was jerking. Of note, the patient has circumferential speech, he stares off into space. The reports this is a bit unusual for her and maybe it is from the pain medications. She has not had any psychiatric history but believe she has anxiety as does many people in her family and that is the reason she drinks alcohol. She says she cannot take the pain anymore and wants to because the pain is so bad. The denies any history suicidal ideation in the past. In the ER a jaw goes am was unremarkable as well as CT of the face. No acute injury. A dental block was performed and the patient reports there was some relief. Alcohol level on admission 220. Last drink was at 11:00 a.m. on 09/11/2024. She was noted to have a CIWA scale 15 and given Ativan. Crisis team visited the patient in the ER and recommended she be medically cleared for another psych eval. A 1 on 1 sitter was placed. ----- Suicide precautions. One on 1 sitter. Crisis team re-evaluation after treatment of alcohol use disorder/withdrawal. Admit to IMU CIWA protocol with Ativan p.r.n.. Will start a low-dose Librium q.6 hours. Counseled about the alcohol use disorder, she says that she uses it for anxiety. Care coordination consultation. Thiamine, multivitamin, folic acid. ----- Full code. Saline lock IV. SCDs Hospitalist MIPS Advance Care Plan I have confirmed that the patient's Advanced Care Plan is present, code status is documented, or surrogate decision maker is listed in patient medical record.: Yes Medication Reconciliation I have utilized all available resources to obtain, update and review the p atients current medications (includes all prescriptions, OTC, herbals, cannabis, and nutritional supplements).: Yes
--- NOTE | 2024-09-12 01:58 | PC.NURSE ---
0148 [facility] calls to decline patient due to cannot provide an appropriate bed right now. 0150 Covid results faxed to [facility] per request.
--- NOTE | 2024-09-12 02:41 | PC.NURSE ---
0239 Called Zenia at [facility], she states Nurse will call for report and room assignment. Pt accepted to Dr. Quezada.
[2024-09-12] MEDS: THIAMINE HCL INJ 100 MG, FOLIC ACID INJ 1 MG, MAGNESIUM SULFATE INJ 1 GM, MULTIVITAMINS... 125 MG IV CONT (02:54)
--- NOTE | 2024-09-12 03:33 | PC.NURSE ---
0307 UMESH Randolph at [facility] calls to get report. During report Tomasa is notified of patients IV and withdraw, and Tomasa states she needs to speak with the supervisor burling and joining and Psychiatrist in regards to IV meds and drip. 0327 UMESH Randolph with [facility] calls back and states they do accept that level of acuity but the room assignment may change. Tomasa states she left a detailed message for the Psychiatrist Dr. Quezada but is still waiting for a call back but the supervisor burling and joining states they do accept patients with IVs but it changes the acuity to 1:1. Tomasa states she will call back when Dr. Quezada returns the call with an update. consumer affairs manager and ERP notified of situation. Patient still has sitter at bedside. Patient on monitor and has IV fluids going via pump.
--- NOTE | 2024-09-12 04:32 | PC.NURSE ---
[id number] UMESH Randolph from [facility] calls back and states she notified the mission support specialist psychiatrist and they state they will accept patient only if IV is removed and patient can manage on PO at this time. This RN spoke with computer systems hardware analyst who discussed case with ERP and software engineering supervisor here at [facility] and patient needs IV meds and drip so she will be admitted to ICU for SI and alcohol withdraw. [id number] This RN called [facility] back and spoke with UMESH Randolph and gave update that the patient will be admitted. Tomasa states they do have beds for [facility] and to call when patient is no longer requiring IV. She gives number of [phone] to call when patient is through withdraw period.
--- NOTE | 2024-09-12 04:45 | PC.NURSE ---
Report received from UMESH Blanca.
--- NOTE | 2024-09-12 05:18 | ADMIMU ---
This patient, Eugenia Sellers, was admitted to IMU status, and placed in Intensive Care Unit-4 on 09/12/24 at 0500. Patient/family oriented to hospital policies and general routines including ID bracelet, bed and alarms, visiting hours, pain management, procedures, bathroom and other care routines, personal items, smoking policy, room service/diet, and visiting hours. Valuables list has been completed. Information on how to activate the Rapid Response Team has been discussed. Patient/Family are encouraged to report perceived risks to care and to ask questions if they do not understand what they are told or what they should do.
[2024-09-12 08:14] LABS: Hematocrit 42.2 % (37.0-47.0); Hemoglobin 14.0 g/dL (12.0-15.0); Immature Granulocyte Percent A 0.2 % (0-0.5); Lymphocytes Absolute Auto 0.57 K/mm3 (0.9-3.2); Mean Corpuscular HGB Conc 33.2 g/dl (32-36); Mean Corpuscular Hemoglobin 32.6 pg (26-34); Mean Corpuscular Volume 98.4 fl (80-100); Nucleated Red Blood Cells Absolute Auto 0.000 K/mm3 (0.0-0.012); Nucleated Red Blood Cells Perc 0.0 % (0.0-0.2); Platelet Count Result 141 k/mm3 (150-375); Red Blood Count 4.29 M/mm3 (4.2-5.4); White Blood Count 5.2 K/mm3 (4.5-10.0)
[2024-09-12] MEDS: FOLIC ACID 1 MG TABLET PO (08:32)
[2024-09-12] MEDS: MULTIVITAMINS THERAPEUTIC TAB (*BKC) 1 TABLET PO (08:32)
[2024-09-12] MEDS: THIAMINE HCL 100 MG TABLET PO (08:32)
[2024-09-12] MEDS: chlordiazePOXIDE (*CRX) 25 MG CAPSULE PO (08:32)
--- NOTE | 2024-09-12 08:58 | PM.IMPN ---
Progress Note: A&P Assessment and Plan (1) Suicidal ideation: Code(s): R45.851 - Suicidal ideations Status: Acute Assessment and Plan: Patient id was admitted with suicidal ideation -continue suicide precautions -bedside sitter in place -crisis evaluate the patient in the ER, and recommended psychiatric evaluation -according the bedside RNs patient does have a bed at [facility], will confirm with care coordination -this morning, she did agree that she volume to harm herself because of the jaw pain was so bad but would not harm anybody else. (2) ETOHism: Code(s): F10.20 - Alcohol dependence, uncomplicated Status: Acute Assessment and Plan: patient takes 5 drinks of Arjun's Vodka daily (3) Alcohol withdrawal: Code(s): F10.939 - Alcohol use, unspecified with withdrawal, unspecified Status: Acute Assessment and Plan: Monitor for alcohol withdrawal -CIWA protocol in place -continue thiamine, folic acid -continue Librium (4) Jaw pain: Code(s): R68.84 - Jaw pain Status: Acute Assessment and Plan: Much improved, In the ER a jaw goes am was unremarkable as well as CT of the face. No acute injury. A dental block was performed and the patient reports there was some relief. Plan DVT prophylaxis: SCDs Stress ulcer prophylaxis: Not indicated Nutrition: Regular diet with suicide precautions Code Status: Full code Critical Care Time Spent: 44 minutes Due to a high probability of clinically significant, life threatening deterioration, the patient required my highest level of preparedness to intervene emergently and I personally spent this critical care time directly and personally managing the patient. This critical care time included obtaining a history; examining the patient; pulse oximetry; ordering and review of studies; arranging urgent treatment with development of a management plan; evaluation of patient's response to treatment; frequent reassessment; and discussions with other providers. It was exclusive of separately billable procedures and treating other patients and teaching time. Please see Assessment and Plan section and the rest of the note for further information on patient assessment and treatment This dictation may have been done utilizing a voice recognition system. Attempts have been made to correct errors. However, there may be uncorrected grammatical, spelling, and recognitions errors present. Subjective Date/time seen: 09/12/24 08:58 Interval history: Chief complaint: Jaw pain, suicidal ideation 09/12/2024: Patient being seen for the hospitalist group: Patient seen and examined this morning, states she feels much better, denies any jaw pain, chest pain, abdominal pain, nausea, vomiting at this time. She does have tangential speech but is easily redirectable. Is awake, alert, oriented x3 This is a 64-year-old female with a history of alcohol use disorder presents to [facility] ER on 09/11/2024 with the complaint of jaw pain. Her whom she lives with is present and helps with history. The patient reports on September 01 she bit into a hamburger that had a bone it she has had significant jaw pain since. She saw a dentist and the dentist said it is likely just a spasm and they did not find anything. The patient has been drinking about 4-5 shots of arjun's vodka for many decades. She has been drinking more since this perceived pain. She reports it as spasming/pain. She says after she sneezed her head was jerking. Of note, the patient has circumferential speech, he stares off into space. The reports this is a bit unusual for her and maybe it is from the pain medications. She has not had any psychiatric history but believe she has anxiety as does many people in her family and that is the reason she drinks alcohol. She says she cannot take the pain anymore and wants to because the pain is so bad. The denies any history suicidal ideation in the past. Review of Systems Review of Systems: All systems reviewed & are unremarkable except as noted in HPI and below (Subjective) Exam Const: General: comfortable and no acute distress Other: A&O x3, tangential speech, HENMT: Mouth: Yes moist mucous membranes Other: No lesions. Jaw is mobile, no clicking. No spasming upon face tapping. No lymphadenopathy Eyes: Pupils: Equal, round and reactive pupils present Neck: Neck: supple Resp: Effort & Inspection: normal respiratory effort Auscultation: clear to auscultation bilaterally Cardio: Rate: regular rate Rhythm: regular rhythm GI: Inspection: non-distended GI Palp: No Soft to palpation, No Firmness to palpation present (GI), Yes Tenderness to palpation present (GI), No Guarding due to palpation present (GI) and No Hernia present Skin: General skin exam: no rashes or lesions noted Neuro: Cranial nerves: Yes Equal, round and reactive pupils present Motor exam (neuro): 5/5 motor strength present throughout Extrem: General: no edema Other: Palpable pedal pulses Objective Data Vital Signs Vital Signs: Vital Signs - 24 hr 09/11/24 11:56 09/11/24 13:23 09/11/24 13:25 Temperature 98.6 F Pulse Rate 127 H 109 H Pulse Rate [Bilateral Pedal (Dorsalis Pedis) Palpation] Respiratory Rate 16 20 20 Blood Pressure 147/96 H 131/75 Pulse Oximetry 99 99 100 Oxygen Delivery Room Air Room Air 09/11/24 23:19 09/11/24 23:53 09/11/24 23:54 Temperature 98.3 F Pulse Rate 95 90 95 Pulse Rate [Bilateral Pedal (Dorsalis Pedis) Palpation] Respiratory Rate 18 16 16 Blood Pressure 160/97 H 159/72 H Pulse Oximetry 98 98 99 Oxygen Delivery 09/11/24 23:55 09/12/24 00:00 09/12/24 00:01 Temperature Pulse Rate 90 90 88 Pulse Rate [Bilateral Pedal (Dorsalis Pedis) Palpation] Respiratory Rate 18 16 Blood Pressure 145/95 H Pulse Oximetry 99 98 Oxygen Delivery 09/12/24 00:15 09/12/24 00:30 09/12/24 00:31 Temperature Pulse Rate 88 86 85 Pulse Rate [Bilateral Pedal (Dorsalis Pedis) Palpation] Respiratory Rate 15 12 13 Blood Pressure 152/76 H Pulse Oximetry 99 99 98 Oxygen Delivery 09/12/24 00:45 09/12/24 01:00 09/12/24 01:01 Temperature Pulse Rate 102 H 100 99 Pulse Rate [Bilateral Pedal (Dorsalis Pedis) Palpation] Respiratory Rate 14 14 17 Blood Pressure 151/71 H Pulse Oximetry 99 97 97 Oxygen Delivery 09/12/24 01:15 09/12/24 01:30 09/12/24 01:31 Temperature Pulse Rate 96 98 97 Pulse Rate [Bilateral Pedal (Dorsalis Pedis) Palpation] Respiratory Rate 18 15 17 Blood Pressure 139/64 Pulse Oximetry 96 96 96 Oxygen Delivery 09/12/24 01:45 09/12/24 02:00 09/12/24 02:01 Temperature Pulse Rate 100 99 99 Pulse Rate [Bilateral Pedal (Dorsalis Pedis) Palpation] Respiratory Rate 16 16 16 Blood Pressure 132/68 Pulse Oximetry 95 96 97 Oxygen Delivery 09/12/24 02:15 09/12/24 02:30 09/12/24 02:31 Temperature Pulse Rate 96 96 98 Pulse Rate [Bilateral Pedal (Dorsalis Pedis) Palpation] Respiratory Rate 18 17 17 Blood Pressure 130/66 Pulse Oximetry 97 98 96 Oxygen Delivery 09/12/24 02:49 09/12/24 03:00 09/12/24 03:01 Temperature Pulse Rate 96 97 99 Pulse Rate [Bilateral Pedal (Dorsalis Pedis) Palpation] Respiratory Rate 16 13 14 Blood Pressure 138/60 Pulse Oximetry 97 99 97 Oxygen Delivery 09/12/24 03:15 09/12/24 03:30 09/12/24 03:31 Temperature Pulse Rate 97 96 95 Pulse Rate [Bilateral Pedal (Dorsalis Pedis) Palpation] Respiratory Rate 16 16 16 Blood Pressure 135/65 Pulse Oximetry 97 97 96 Oxygen Delivery 09/12/24 03:45 09/12/24 04:00 09/12/24 04:00 Temperature Pulse Rate 97 94 Pulse Rate [Bilateral Pedal (Dorsalis Pedis) Palpation] 101 H Respiratory Rate 16 16 Blood Pressure 135/60 Pulse Oximetry 97 98 Oxygen Delivery 09/12/24 04:01 09/12/24 04:15 09/12/24 04:30 Temperature Pulse Rate 94 94 93 Pulse Rate [Bilateral Pedal (Dorsalis Pedis) Palpation] Respiratory Rate 15 16 16 Blood Pressure 138/64 Pulse Oximetry 99 98 99 Oxygen Delivery 09/12/24 04:31 09/12/24 04:49 09/12/24 07:25 Temperature 97.6 F 98 F Pulse Rate 95 100 97 Pulse Rate [Bilateral Pedal (Dorsalis Pedis) Palpation] Respiratory Rate 17 16 18 Blood Pressure 138/64 138/81 Pulse Oximetry 97 99 94 Oxygen Delivery 09/12/24 08:00 Temperature Pulse Rate 103 H Pulse Rate [Bilateral Pedal (Dorsalis Pedis) Palpation] Respiratory Rate Blood Pressure Pulse Oximetry Oxygen Delivery Meds/Results Medications: Active Medications Generic Name Dose Route Start Last Admin Trade Name Freq PRN Reason Stop Dose Admin Chlordiazepoxide HCl 25 mg 09/12/24 06:00 09/12/24 08:32 Chlordiazepoxide (*Crx) 25 Mg Capsule PO 25 mg Q6HR JOSÉ Administration Folic Acid 1 mg 09/12/24 09:00 07/14/25 08:32 Folic Acid 1 Mg Tablet PO 1 mg DAILY JOSÉ Administration Dextrose/Sodium Chloride 1,000 mls @ 125 mls/hr 09/12/24 10:00 Dextrose 5% Sodium Chloride 0.45% IV CONT .Q8H JOSÉ Thiamine HCl 100 mg/ Folic 1,013.2 mls @ 125 mls/hr 09/12/24 02:06 09/12/24 02:54 Acid 1 mg/ Magnesium Sulfate 1 IV CONT 09/12/24 10:12 125 mls/hr gm/ Multivitamins 5 ml/ .Q8H7M ONE Administration Multivitamins 5 ml/ Sodium Chloride Lorazepam 2 mg 09/12/24 02:06 Lorazepam Inj (*Crx) 2 Mg/Ml Vial IV PUSH Q2H PRN CIWA > 15 Multivitamins Therapeutic 1 tablet 09/12/24 09:00 09/12/24 08:32 Multivitamins Therapeutic Tab (*Bkc) PO 1 tablet QAM [facility] Administration Thiamine HCl 100 mg 09/12/24 09:00 09/12/24 08:32 Thiamine Hcl 100 Mg Tablet PO 100 mg QAM JOSÉ Administration Radiology Results: ITS Impressions Face CT 09/11/24 16:07 IMPRESSION: No facial fracture. Labs Labs: Laboratory Results - last 24 hr 09/11/24 09/11/24 09/11/24 14:32 14:57 20:34 WBC 7.5 RBC 4.86 Hgb 15.6 H Hct 46.6 MCV 95.9 MCH 32.1 MCHC 33.5 RDW 12.9 Plt Count 177 MPV 9.0 Immature Gran % (Auto) 0.3 Neut % (Auto) 81.5 H Lymph % (Auto) 12.3 L [place] % (Auto) 5.6 Eos % (Auto) 0.0 Baso % (Auto) 0.3 Lymph # (Auto) 0.92 [place] # (Auto) 0.4 Eos # (Auto) 0.0 Baso # (Auto) 0.0 Abs Immat Gran (auto) 0.02 Absolute Neuts (auto) 6.1 Absolute Nucleated RBC 0.000 Nucleated RBC % 0.0 Sodium 137 Potassium 4.3 Chloride 98 Carbon Dioxide 18 L Anion Gap 21 H BUN 11 Creatinine 0.73 Estim Creat Clear Calc 49 Estimated GFR > 60 Glucose 85 POC Capillary Glucose Calcium 9.3 Total Bilirubin 0.7 AST 116 H ALT 67 H Alkaline Phosphatase 129 H Total Protein 7.9 Albumin 4.6 TSH 0.533 Urine Color Yellow Urine Appearance Clear Urine pH 5.0 Ur Specific [place] 1.023 Urine Protein 2+ H Urine Glucose (UA) Negative Urine Ketones 3+ H Ur Blood (Man) 1+ H Urine Nitrate Negative Urine Bilirubin Negative Urine Urobilinogen 1.0 Leukocyte Esterase Rfl Trace H Urine RBC 0-2 Urine WBC 0-5 Ur Squamous Epith Cells None seen Urine Bacteria None seen Urine Casts 3-5 Salicylates < 1.0 L Urine Opiates Screen Negative Urine Methadone Screen Negative Acetaminophen < 10 L Ur Barbiturates Screen Negative Ur Phencyclidine Scrn Negative Ur Amphetamine Screen Negative U Benzodiazepines Scrn Negative Urine Cocaine Screen Negative U Cannabinoids Screen Negative Ethyl Alcohol 224 87 Influenza A (RT-PCR) Influenza B (RT-PCR) RSV (RT-PCR) SARS-CoV-2 RNA (RT-PCR) 09/12/24 09/12/24 09/12/24 00:35 06:28 07:59 WBC 5.2 RBC 4.29 Hgb 14.0 Hct 42.2 MCV 98.4 MCH 32.6 MCHC 33.2 RDW 13.0 Plt Count 141 L MPV 9.2 Immature Gran % (Auto) 0.2 Neut % (Auto) 78.1 H Lymph % (Auto) 10.9 L [place] % (Auto) 9.6 H Eos % (Auto) 0.8 Baso % (Auto) 0.4 Lymph # (Auto) 0.57 L [place] # (Auto) 0.5 Eos # (Auto) 0.0 Baso # (Auto) 0.0 Abs Immat Gran (auto) 0.01 Absolute Neuts (auto) 4.1 Absolute Nucleated RBC 0.000 Nucleated RBC % 0.0 Sodium Potassium Chloride Carbon Dioxide Anion Gap BUN Creatinine Estim Creat Clear Calc Estimated GFR Glucose POC Capillary Glucose 65 Calcium Total Bilirubin AST ALT Alkaline Phosphatase Total Protein Albumin TSH Urine Color Urine Appearance Urine pH Ur Specific [place] Urine Protein Urine Glucose (UA) Urine Ketones Ur Blood (Man) Urine Nitrate Urine Bilirubin Urine Urobilinogen Leukocyte Esterase Rfl Urine RBC Urine WBC Ur Squamous Epith Cells Urine Bacteria Urine Casts Salicylates Urine Opiates Screen Urine Methadone Screen Acetaminophen Ur Barbiturates Screen Ur Phencyclidine Scrn Ur Amphetamine Screen U Benzodiazepines Scrn Urine Cocaine Screen U Cannabinoids Screen Ethyl Alcohol Influenza A (RT-PCR) Negative Influenza B (RT-PCR) Negative RSV (RT-PCR) Negative SARS-CoV-2 RNA (RT-PCR) Negative Quality VTE Prophylaxis VTE prophylaxis: mechanical ordered Hospitalist MIPS Advance Care Plan I have confirmed that the patient's Advanced Care Plan is present, code status is documented, or surrogate decision maker is listed in patient medical record.: Yes Medication Reconciliation I have utilized all available resources to obtain, update and review the patients current medications (includes all prescriptions, OTC, herbals, cannabis, and nutritional supplements).: Yes
[2024-09-12 09:00] LABS: Anion Gap 14 mmol/L (4-12); Blood Urea Nitrogen 15 mg/dL (7-17); Calcium 8.9 mg/dL (8.4-10.2); Carbon Dioxide 20 mmol/L (22-30); Chloride 99 mmol/L (98-107); Estimated CRCL calculation 49 ml/min; Estimated Glomerular Filt Rate > 60; Glucose 74 mg/dL (65-110); Potassium 4.4 mmol/L (3.4-5.0); Sodium 133 mmol/L (137-145)
[2024-09-12 09:05] LABS: Magnesium 2.2 mg/dL (1.6-2.3)
--- NOTE | 2024-09-12 13:26 | P.DS_ITS ---
DS: Admitting Diagnosis Discharge Date 09/12/2024 Admitting Diagnosis Jaw pain, suicidal ideation DS: Discharge Diagnosis Discharge Diagnosis (1) Suicidal ideation: Code(s): R45.851 - Suicidal ideations Status: Acute Assessment and Plan: Patient was admitted jaw pain along with with suicidal ideation -continue suicide precautions -bedside sitter in place -crisis evaluate the patient in the ER, and recommended psychiatric evaluation -this morning, she did agree that she volume to harm herself because of the jaw pain was so bad but would not harm anybody else. -crisis management evaluated the patient, sending patient home on a contract signed by the patient, as she will follow their recommendations, a counselor will continue to evaluate the patient -patient advised to obtain a Psychiatry consultation, details provided (2) ETOHism: Code(s): F10.20 - Alcohol dependence, uncomplicated Status: Acute Assessment and Plan: patient takes 5 drinks of Ijeoma's Vodka daily -watch for alcohol withdrawal (3) Alcohol withdrawal: Code(s): F10.939 - Alcohol use, unspecified with withdrawal, unspecified Status: Acute Assessment and Plan: Monitor for alcohol withdrawal -CIWA protocol in place -continue thiamine, folic acid -continue Librium (4) Jaw pain: Code(s): R68.84 - Jaw pain Status: Acute Assessment and Plan: Much improved, In the ER a jaw goes am was unremarkable as well as CT of the face. No acute injury. A dental block was performed and the patient reports there was some relief. Plan DVT prophylaxis: SCDs Stress ulcer prophylaxis: Not indicated Nutrition: Regular diet with suicide precautions Code Status: Full code Due to a high probability of clinically significant, life threatening deterioration, the patient required my highest level of preparedness to intervene emergently and I personally spent this critical care time directly and personally managing the patient. This critical care time included obtaining a history; examining the patient; pulse oximetry; ordering and review of studies; arranging urgent treatment with development of a management plan; evaluation of patient's response to treatment; frequent reassessment; and discussions with other providers. It was exclusive of separately billable procedures and treating other patients and teaching time. Please see Assessment and Plan section and the rest of the note for further information on patient assessment and treatment This dictation may have been done utilizing a voice recognition system. Attempts have been made to correct errors. However, there may be uncorrected grammatical, spelling, and recognitions errors present. DS: Summary Hospital Course Reason for hospitalization: Jaw pain, suicidal ideation Hospital Course: 09/12/2024: Patient being seen for the hospitalist group: Patient seen and examined this morning, states she feels much better, denies any jaw pain, chest pain, abdominal pain, nausea, vomiting at this time. She does have tangential speech but is easily redirectable. Is awake, alert, oriented x3 This is a 64-year-old female with a history of alcohol use disorder presents to [facility] ER on 09/11/2024 with the complaint of jaw pain. Her whom she lives with is present and helps with history. The patient reports on September 01 she bit into a hamburger that had a bone it she has had significant jaw pain since. She saw a dentist and the dentist said it is likely just a spasm and they did not find anything. The patient has been drinking about 4-5 shots of ijeoma's vodka for many decades. She has been drinking more since this perceived pain. She reports it as spasming/pain. She says after she sneezed her head was jerking. Of note, the patient has circumferential speech, he stares off into space. The reports this is a bit unusual for her and maybe it is from the pain medications. She has not had any psychiatric history but believe she has anxiety as does many people in her family and that is the reason she drinks alcohol. She says she cannot take the pain anymore and wants to because the pain is so bad. The denies any history suicidal ideation in the past. Patient was seen by crisis management were sending home with a signed contract. Status at Discharge Cognitive/behavioral status at discharge: Stable Overall status at discharge: patient is back to baseline Time Spent with Patient Time attestation: Total time spent providing and/or coordinating discharge services: Time spent: Less than 30 minutes Exam Narrative: Const: General: comfortab le and no acute di stress Other: A &O x3, tangential speech, HENMT: Mouth: Yes moist m ucous membranes O ther: No lesions . Jaw is mobile, no clicking. No s pasming upon face tapping. No lymph adenopathy Eyes: Pupils: Equal, rou nd and reactive pu pils present Neck: Neck: supple Resp: Effort & Inspectio n: normal respirat ory effort Auscul tation: clear to a uscultation bilate rally Cardio: Rate: regular rate Rhythm: regular rhythm GI: Inspection: non-di stended GI Palp: No Soft to palpati on, No Firmness to palpation present (GI), Yes Tendern ess to palpation p resent (GI), No Gu arding due to palp ation present (GI) and No Hernia pre sent Skin: General skin exam: no rashes or lesi ons noted Neuro: Cranial nerves: Ye s Equal, round and reactive pupils p resent Motor exam (neuro): 5/5 ella r strength present throughout Extrem: General: no edema Other: Palpable pedal pulses Const: General: comfortable and no acute distress Other: A&O x3, tangential speech, HENMT: Mouth: Yes moist mucous membranes Other: No lesions. Jaw is mobile, no clicking. No spasming upon face tapping. No lymphadenopathy Eyes: Pupils: Equal, round and reactive pupils present Neck: Neck: supple Resp: Effort & Inspection: normal respiratory effort Auscultation: clear to auscultation bilaterally Cardio: Rate: regular rate Rhythm: regular rhythm GI: Inspection: non-distended Skin: General skin exam: no rashes or lesions noted Neuro: Cranial nerves: Yes Equal, round and reactive pupils present Motor exam (neuro): 5/5 motor strength present throughout Extrem: General: no edema Other: Palpable pedal pulses DS: Data Data Completed and Pending Labs on day of discharge: Labs from last 24 hours 09/12/24 09/12/24 09/12/24 11:58 07:59 06:28 WBC 5.2 RBC 4.29 Hgb 14.0 Hct 42.2 MCV 98.4 MCH 32.6 MCHC 33.2 RDW 13.0 Plt Count 141 L MPV 9.2 Immature Gran % (Auto) 0.2 Neut % (Auto) 78.1 H Lymph % (Auto) 10.9 L [place] % (Auto) 9.6 H Eos % (Auto) 0.8 Baso % (Auto) 0.4 Lymph # (Auto) 0.57 L [place] # (Auto) 0.5 Eos # (Auto) 0.0 Baso # (Auto) 0.0 Abs Immat Gran (auto) 0.01 Absolute Neuts (auto) 4.1 Absolute Nucleated RBC 0.000 Nucleated RBC % 0.0 Sodium 133 L Potassium 4.4 Chloride 99 Carbon Dioxide 20 L Anion Gap 14 H BUN 15 Creatinine 0.73 Estim Creat Clear Calc 49 Estimated GFR > 60 Glucose 74 POC Capillary Glucose 96 65 Calcium 8.9 Magnesium 2.2 Total Bilirubin AST ALT Alkaline Phosphatase Total Protein Albumin TSH Urine Color Urine Appearance Urine pH Ur Specific [place] Urine Protein Urine Glucose (UA) Urine Ketones Ur Blood (Man) Urine Nitrate Urine Bilirubin Urine Urobilinogen Leukocyte Esterase Rfl Urine RBC Urine WBC Ur Squamous Epith Cells Urine Bacteria Urine Casts Salicylates Urine Opiates Screen Urine Methadone Screen Acetaminophen Ur Barbiturates Screen Ur Phencyclidine Scrn Ur Amphetamine Screen U Benzodiazepines Scrn Urine Cocaine Screen U Cannabinoids Screen Ethyl Alcohol Influenza A (RT-PCR) Influenza B (RT-PCR) RSV (RT-PCR) SARS-CoV-2 RNA (RT-PCR) 09/12/24 09/11/24 09/11/24 00:35 20:34 14:57 WBC RBC Hgb Hct MCV MCH MCHC RDW Plt Count MPV Immature Gran % (Auto) Neut % (Auto) Lymph % (Auto) [place] % (Auto) Eos % (Auto) Baso % (Auto) Lymph # (Auto) [place] # (Auto) Eos # (Auto) Baso # (Auto) Abs Immat Gran (auto) Absolute Neuts (auto) Absolute Nucleated RBC Nucleated RBC % Sodium Potassium Chloride Carbon Dioxide Anion Gap BUN Creatinine Estim Creat Clear Calc Estimated GFR Glucose POC Capillary Glucose Calcium Magnesium Total Bilirubin AST ALT Alkaline Phosphatase Total Protein Albumin TSH Urine Color Yellow Urine Appearance Clear Urine pH 5.0 Ur Specific [place] 1.023 Urine Protein 2+ H Urine Glucose (UA) Negative Urine Ketones 3+ H Ur Blood (Man) 1+ H Urine Nitrate Negative Urine Bilirubin Negative Urine Urobilinogen 1.0 Leukocyte Esterase Rfl Trace H Urine RBC 0-2 Urine WBC 0-5 Ur Squamous Epith Cells None seen Urine Bacteria None seen Urine Casts 3-5 Salicylates Urine Opiates Screen Negative Urine Methadone Screen Negative Acetaminophen Ur Barbiturates Screen Negative Ur Phencyclidine Scrn Negative Ur Amphetamine Screen Negative U Benzodiazepines Scrn Negative Urine Cocaine Screen Negative U Cannabinoids Screen Negative Ethyl Alcohol 87 Influenza A (RT-PCR) Negative Influenza B (RT-PCR) Negative RSV (RT-PCR) Negative SARS-CoV-2 RNA (RT-PCR) Negative 09/11/24 14:32 WBC 7.5 RBC 4.86 Hgb 15.6 H Hct 46.6 MCV 95.9 MCH 32.1 MCHC 33.5 RDW 12.9 Plt Count 177 MPV 9.0 Immature Gran % (Auto) 0.3 Neut % (Auto) 81.5 H Lymph % (Auto) 12.3 L [place] % (Auto) 5.6 Eos % (Auto) 0.0 Baso % (Auto) 0.3 Lymph # (Auto) 0.92 [place] # (Auto) 0.4 Eos # (Auto) 0.0 Baso # (Auto) 0.0 Abs Immat Gran (auto) 0.02 Absolute Neuts (auto) 6.1 Absolute Nucleated RBC 0.000 Nucleated RBC % 0.0 Sodium 137 Potassium 4.3 Chloride 98 Carbon Dioxide 18 L Anion Gap 21 H BUN 11 Creatinine 0.73 Estim Creat Clear Calc 49 Estimated GFR > 60 Glucose 85 POC Capillary Glucose Calcium 9.3 Magnesium Total Bilirubin 0.7 AST 116 H ALT 67 H Alkaline Phosphatase 129 H Total Protein 7.9 Albumin 4.6 TSH 0.533 Urine Color Urine Appearance Urine pH Ur Specific [place] Urine Protein Urine Glucose (UA) Urine Ketones Ur Blood (Man) Urine Nitrate Urine Bilirubin Urine Urobilinogen Leukocyte Esterase Rfl Urine RBC Urine WBC Ur Squamous Epith Cells Urine Bacteria Urine Casts Salicylates < 1.0 L Urine Opiates Screen Urine Methadone Screen Acetaminophen < 10 L Ur Barbiturates Screen Ur Phencyclidine Scrn Ur Amphetamine Screen U Benzodiazepines Scrn Urine Cocaine Screen U Cannabinoids Screen Ethyl Alcohol 224 Influenza A (RT-PCR) Influenza B (RT-PCR) RSV (RT-PCR) SARS-CoV-2 RNA (RT-PCR) Discharge Plan Discharge Attending physician on discharge: Marcia Carter Consulting providers: Eugene Melchor Discharging Clinician: Marcia Carter Anticipated Discharge Date/Time: 09/12/24 13:15 Patient Disposition: Home Activity: may shower Diet: as tolerated and regular Patient Instructions: Antibiotic Form, Depression (GEN), Anxiety (GEN), Alcohol Dependence (GEN), Suicide Prevention (GEN) Patient Language: Syriac Stand Alone Forms: General Discharge Information Follow-up/Referrals: Sanju Case MD [Physician] - 1 Week Date of admission: 09/12/24 00:32 Primary Care Provider: PHYSICIAN,MECHANICAL ENGINEERING DRAFTSPERSON Admitting Provider: Tara Santos Attending physician on admission: Tara Santos Condition: Stable Care Plan Goals: Follow Crisis management instructions Health Concerns: If you experience pain, suicidal ideation, go to nearest emergency room Quality VTE Prophylaxis VTE prophylaxis: mechanical ordered
== END 2024-09-12 14:29 | disposition home or self-care (01) | DRG 897 ==
LOC: ANHED 09-12 02:42 → ANHICU 09-12 04:40
PROVIDERS: Emergency Medicine; Admitting Provider General Practice; Emergency Provider Emergency Medicine; Visit Provider Internal Medicine
DX: F10.20 Alcohol dependence, uncomplicated (principal); R45.851 Suicidal ideations; Y90.7 Blood alcohol level of 200-239 mg/100 ml; R68.84 Jaw pain
CPT/HCPCS: 36415; 70486; 80048; 80053; 80143; 80179; 80307; 81001; 82077; 82948; 83735; 84443; 85025; 87637; 93005; 96374; 99285; A9270; J2060; J3411; J3475; J7030